=== PATIENT | female | born 1960 | race African-American/Black ===

== ENCOUNTER 2016-08-29 20:59 | Emergency (ER) | payer MEDICAID ==
[~2016-08-29] VITALS: Ht 154.9 cm; Wt 98.0 kg
[~2016-08-29 20:59] MED LIST: ACET-1757 PO; AMLO10TA2 PO; ASPI-621 PO; ASPI325T4 PO; ATOR10TA PO; ATOR80TA75 PO; BISA10SU65 PR; BUPR75TA5 PO; CARV6.252 PO; CITA20TA9 PO; CYCL-259 PO; DOCU240C53 PO; ENOX40SY4 SQ; ESOM20CA PO; FURO-93 PO; GABA300C10 PO; HEPA5000 SQ; HYDR-3342 PO; INSU100C SQ; INSU100I28 SC; INSU100I28 SQ-INSULIN; INSU100V5 SQ-INSULIN; INSU100V8 SQ; LOSA25TA2 PO; LOSA50TA2 PO; MICO45CR VG; NICO1PAT4 TD; OXYC1TAB9 PO; RANI-276 PO; RANI150T4 PO; TRAM50TA2 PO
[2016-08-29] MEDS ORDERED: ONDANSETRON 2MG/ML, 2ML IVPush ONE (22:00)
[2016-08-29] MEDS ORDERED: ONDANSETRON 2MG/ML, 2ML ONE (22:10)
[2016-08-29] MEDS ORDERED: MORPHINE SULFATE 4 MG/ML, 1ML ONE ×2 (22:10→23:46)
[2016-08-29] MEDS: MORPHINE SULFATE 4 MG/ML, 1ML IVPush PRN ×2 (22:14→23:49)
[2016-08-29 23:52] VITALS: BP 154/85
== END 2016-08-30 02:15 | disposition home or self-care (01) ==
LOC: ED 08-30 00:53
DX: S42.291A Other displaced fracture of upper end of right humerus, initial encounter for closed fracture (principal); G43.909 Migraine, unspecified, not intractable, without status migrainosus; E78.5 Hyperlipidemia, unspecified; J45.909 Unspecified asthma, uncomplicated; E78.00 Pure hypercholesterolemia, unspecified; I10 Essential (primary) hypertension; J44.9 Chronic obstructive pulmonary disease, unspecified; E11.9 Type 2 diabetes mellitus without complications; Z87.891 Personal history of nicotine dependence; W07.XXXA Fall from chair, initial encounter; Y93.89 Activity, other specified; Y92.89 Other specified places as the place of occurrence of the external cause; Y99.8 Other external cause status
CPT/HCPCS: 73030; 73200; 96374; 96375; 96376; 99284; J2405

== ENCOUNTER 2018-07-09 17:12 | Emergency (ER) | payer MEDICAID ==
[~2018-07-09] VITALS: Ht 154.9 cm; Wt 114.0 kg
[~2018-07-09 17:12] MED LIST changes: -AMLO10TA2 PO; +AMLO10TA8 PO; -ASPI-621 PO; +ASPI325T17 PO; -ASPI325T4 PO; +ASPI81TA45 PO; +ATOR-2 PO; -ATOR80TA75 PO; -HEPA5000 SQ; +HEPA50002 SQ; +NICO-486 TD; -NICO1PAT4 TD; +OXYC-432 PO; -OXYC1TAB9 PO; -RANI-276 PO; +RANI-448 PO
--- NOTE | 2018-07-09 17:19 | NUR ---
PT BIB [facility] FOR RLQ PAIN FOR 6 DAYS. PAIN IS A 7/10 ON THE PAIN SCALE. DENIES N/V/D. REPORTS THAT PAIN GOES DOWN HER BUTT WHEN SHE WALKS. BP 117/56, FS 133. PT TOOK 10 MG PERCOSET PRIOR TO ARRIVAL. PT IS ALERT, ORIENTED, WITH NAD. PT IS CONNECTED TO THE MONITOR. CALL LIGHT WITHIN REACH.
--- NOTE | 2018-07-09 17:26 | NUR ---
PA AT BEDSIDE.
[2018-07-09] MEDS ORDERED: KETOROLAC 30 MG/1 ML ONE (17:46)
[2018-07-09 17:55] VITALS: BP 129/69
[2018-07-09 17:59] LABS: BASOPHILS # (AUTO) 0.07 x10^3/uL (0-0.1); BASOPHILS % (AUTO) 1 % (0-1); EOSINOPHILS # (AUTO) 0.13 x10^3/uL (0-0.4); EOSINOPHILS % (AUTO) 2 % (1-7); LYMPHOCYTES % (AUTO) 44 % (22-44); MD NO; MEAN CORPUSCULAR HGB CONC 32.9 g/dL (32.4-35.8); MEAN CORPUSCULAR VOLUME 85.2 fL (80-100); MEAN PLATELET VOLUME 9.5 fL (7.4-10.4); MONOCYTES % (AUTO) 6 % (2-9); NEUTROPHILS # (AUTO) 3.03 x10^3/uL (1.8-6.8); NEUTROPHILS % (AUTO) 47 % (42-75); PLATELET COUNT 244 x10^3/uL (130-400); RED BLOOD COUNT 4.02 x10^6/uL (3.82-5.3); RED CELL DISTRIBUTION WIDTH 14.8 % (9.6-15.2)
[2018-07-09] MEDS ORDERED: KETOROLAC 30 MG/1 ML IM ONE (18:00)
[2018-07-09 18:07] LABS: ALANINE AMINOTRANSFERASE 19 U/L (12-78); ALBUMIN 3.1 g/dL (3.4-5.0); ANION GAP 6 mmol/L (5-15); CALCIUM 8.2 mg/dL (8.5-10.1); CHLORIDE 115 mmol/L (98-107); CREATININE 1.07 mg/dL (0.55-1.02)
[2018-07-09 18:09] LABS: ALKALINE PHOSPHATASE 138 U/L (45-117); BILIRUBIN,TOTAL 0.4 mg/dL (0.2-1.0); TOTAL PROTEIN 7.3 g/dL (6.4-8.2)
--- NOTE | 2018-07-09 18:12 | NUR ---
PT IS RESTING IN BED WATCHING TV, RESPIRATIONS EQUAL AND NON LABORED. NAD. PT IS CONNECTED TO THE MONITOR. CALL LIGHT WITHIN REACH.
[2018-07-09 18:33] LABS: CULTURE INDICATED? YES; MICROSCOPIC INDICATED
[2018-07-09] MEDS ORDERED: OMNIPAQUE 350 MG/ML, 100ML BOTTLE ONE (19:00)
--- NOTE | 2018-07-09 19:03 | NUR ---
Report given to Phan MOY.
--- NOTE | 2018-07-09 19:51 | NUR ---
PT TO BR AND BACK VIA WC AND AWAITING CT SCAN
--- NOTE | 2018-07-09 20:25 | NUR ---
PT WITH IV PLACED AND TO CT SCAN ORDERED.
--- NOTE | 2018-07-09 20:41 | NUR ---
PT BACK FROM CT SCAN PLACED ON MONITOR AND AWAITING CT RESULTS.
[2018-07-09] MEDS ORDERED: CEFDINIR 300 MG CAPSULE PO ONE (21:00)
[2018-07-09] MEDS ORDERED: CEFDINIR 300 MG CAPSULE ONE (21:14)
--- NOTE | 2018-07-09 21:17 | NUR ---
PT GIVEN SANDWICH AND TRANSPORT TO FACILITY VIA [facility] IS BEING ARRANGED
--- NOTE | 2018-07-09 21:32 | NUR ---
REPORT CALLED TO RN AT [facility]
--- NOTE | 2018-07-09 22:09 | NUR ---
SPOKE WITH TENZIN AT [facility]
--- NOTE | 2018-07-09 22:18 | NUR ---
[facility] DUE FOR TRANSPORT AT [id number]
== END 2018-07-09 23:17 | disposition home or self-care (01) ==
LOC: ED 18:41
DX: N30.00 Acute cystitis without hematuria (principal); B37.9 Candidiasis, unspecified; I25.10 Atherosclerotic heart disease of native coronary artery without angina pectoris; I10 Essential (primary) hypertension; E11.9 Type 2 diabetes mellitus without complications; J45.909 Unspecified asthma, uncomplicated
CPT/HCPCS: 36415; 74177; 80053; 81001; 83690; 85025; 87086; 96372; 99284; J1885; Q9967

== ENCOUNTER 2018-09-10 23:31 | Inpatient (IN) | payer MEDICAID ==
[~2018-09-10] VITALS: Ht 157.5 cm; Wt 106.4 kg
--- NOTE | 2018-09-10 23:57 | NUR ---
PT BIB EMS FROM [facility]. PT WAS FOUND TO BE ALTERED. EMS REPORTS THAT PT USUALLY IS UP AND WALKING. PT HAS BEEN ON FLAGYL TID 500 MG FOR CHOLESTASIS. PT WAS BROUGHT IN WITH A CATHETER IN PLACE. PT IS ABLE TO FOLLOW COMANDS BUT IS NOT ABLE TO ANSWER ALL A&O QUESTIONS. PT KNOWS SELF. VS STABLE AT THIS TIME. DR OSMAN HAS SEEN PATIENT. LAB IN ROOM. MILL CONTROLLER ON. NSR NOTED. WILL CONTINUE TO MONITOR.
[2018-09-11] MEDS ORDERED: CEFT1VIA13 IM (00:03)
[2018-09-11 00:04] LABS: ALANINE AMINOTRANSFERASE 16 U/L (12-78); ALBUMIN 1.9 g/dL (3.4-5.0); ANION GAP 7 mmol/L (5-15); CALCIUM 8.3 mg/dL (8.5-10.1); CHLORIDE 121 mmol/L (98-107); CREATININE 3.35 mg/dL (0.55-1.02)
[2018-09-11] MEDS ORDERED: CITA10TA8 PO (00:04)
[2018-09-11 00:05] LABS: PROTHROMBIN TIME 10.5 Seconds (9.6-11.5)
[2018-09-11 00:06] LABS: BILIRUBIN,TOTAL 0.4 mg/dL (0.2-1.0)
[2018-09-11] MEDS ORDERED: METR500T PO ×2 (00:06)
[2018-09-11 00:07] LABS: TOTAL PROTEIN 6.4 g/dL (6.4-8.2)
[2018-09-11] MEDS ORDERED: LOSA50TA14 PO (00:07)
[2018-09-11] MEDS ORDERED: LORA0.5T PO (00:07)
[2018-09-11] MEDS ORDERED: OXYB5TAB7 PO (00:08)
[2018-09-11 00:09] LABS: ALKALINE PHOSPHATASE 160 U/L (45-117)
[2018-09-11] MEDS ORDERED: HYDR-3343 PO (00:10)
[2018-09-11] MEDS ORDERED: GABA300C10 PO (00:11)
[2018-09-11] MEDS ORDERED: DIVA125T2 PO (00:13)
[2018-09-11] MEDS ORDERED: INSU100I13 SQ (00:15)
[2018-09-11 00:18] LABS: TROPONIN I 0.138 ng/mL (0.000-0.045)
--- NOTE | 2018-09-11 00:29 | NUR ---
PT IS ABLE TO ANSWER WHO SHE IS AND DATE OF . VS STABLE. WIND TURBINE DESIGN ENGINEER ON. NSR NOTED. CALL LIGHT IN PLACE. WILL CONTINUE TO MONITOR.
--- NOTE | 2018-09-11 00:38 | NUR ---
TASK RN: DELANEY GARCIA (AUNT) [phone]
[2018-09-11 00:42] LABS: CULTURE INDICATED? YES; MICROSCOPIC INDICATED
[2018-09-11] MEDS ORDERED: CEFTRIAXONE PMX 1GM/50ML 50 ML ONE (00:57)
--- NOTE | 2018-09-11 00:58 | NUR ---
LAB IN ROOM FOR REDRAW BOTH BLOOD CULTURES DRAWN BEFORE ABX GIVEN
[2018-09-11] MEDS ORDERED: PIPERACILLIN/TAZO/PMX 3.375GM 50 ML IVPB ONE (01:00)
[2018-09-11] MEDS ORDERED: SODIUM CHLORIDE 0.9% 1,000ML IVBOLUS ONE ×2 (01:00)
[2018-09-11] MEDS: ASPIRIN 300 MG SUPP PR ONE ×2 (01:00→01:03)
[2018-09-11] MEDS ORDERED: VANCOMYCIN 1,500 MG in SODIUM CHLORIDE 0.9% 250 ML IV ONE (01:00)
[2018-09-11] MEDS ORDERED: VANCOMYCIN PER PHARMACY IV ONE (01:00)
[2018-09-11] MEDS ORDERED: CEFTRIAXONE PMX 1GM/50ML 50 ML IVPB ONE (01:00)
--- NOTE | 2018-09-11 01:07 | NUR ---
PT SCREAMING AND YELLING. PT REFUSED RECTAL [facility]. DR RUELAS IN ROOM. OKAYED TO HOLD ASPIRIN AT THIS TIME.
[2018-09-11] MEDS ORDERED: PIPERACILLIN/TAZO/PMX 3.375GM 50 ML ONE ×2 (01:12→01:13)
[2018-09-11] MEDS ORDERED: ZIPRASIDONE 20 MG INJ IM ONE ×3 (01:20→22:00)
[2018-09-11] MEDS ORDERED: SODIUM CHLORIDE 0.9% 1,000 ML IV SCH (01:23)
[2018-09-11] MEDS ORDERED: VANCOMYCIN PER PHARMACY MC PRN (01:30)
--- NOTE | 2018-09-11 01:30 | NUR ---
PT YELLING AND MOVING AROUND BED. DR RUELAS IN ROOM. ORDERED SARWAT. MEDICATION GIVEN. WILL CONTINUE TO MONITOR.
--- NOTE | 2018-09-11 01:56 | NUR ---
BREAK RN: PT BLOOD CULTURES ARE DRAWN AND PT IS BANDED. ORDERED ABX STARTED. PT CALMING DOWN AFTER MEDS. ORDERED FLUIDS INFUSING. BILAT BEDRAILS UP. WILL CONTINUE TO MONITOR.
[2018-09-11 02:01] LABS: MEAN CORPUSCULAR HEMOGLOBIN 28.4 pg (27.0-34.8); MEAN CORPUSCULAR HGB CONC 31.9 g/dL (32.4-35.8); MEAN CORPUSCULAR VOLUME 88.8 fL (80-100); MEAN PLATELET VOLUME 10.2 fL (7.4-10.4); PLATELET COUNT 303 x10^3/uL (130-400)
[2018-09-11 02:16] LABS: BASOPHILS # (AUTO) 0.06 x10^3/uL (0-0.1); BASOPHILS % (AUTO) 0 % (0-1); EOSINOPHILS # (AUTO) 0.16 x10^3/uL (0-0.4); EOSINOPHILS % (AUTO) 1 % (1-7); LYMPHOCYTES # (AUTO) 3.67 x10^3/uL (1-3.4); LYMPHOCYTES % (AUTO) 20 % (22-44); MD SCAN; MONOCYTES # (AUTO) 1.43 x10^3/uL (0.2-0.8); MONOCYTES % (AUTO) 8 % (2-9); NEUTROPHILS # (AUTO) 13.35 x10^3/uL (1.8-6.8); NEUTROPHILS % (AUTO) 72 % (42-75)
[2018-09-11 02:59] LABS: AMPHETAMINE SCREEN, URINE Negative (Negative); BARBITURATE SCREEN, URINE Negative (Negative); BENZODIAZEPINE SCREEN, URINE Negative (Negative); CANNABINOID SCREEN, URINE Negative (Negative); COCAINE SCREEN, URINE Negative (Negative); METHADONE SCREEN, URINE Negative (Negative); OPIATE SCREEN, URINE Positive (Negative)
--- NOTE | 2018-09-11 02:59 | NUR ---
PT PUT ON WAFFLE MATTRESS. PT BACK FROM CT. VS STABLE. GRAIN ELEVATOR OPERATOR ON. NSR NOTED. CALL LIGHT IN PLACE. WILL CONTINUE TO MONITOR.
[2018-09-11] MEDS ORDERED: INSULIN GLARGINE 100 UNITS/ML, PEN SQ-INSULIN SCH (03:00)
[2018-09-11] MEDS ORDERED: CYCLOBENZAPRINE 10 MG TABLET PO PRN (03:00)
--- NOTE | 2018-09-11 03:32 | NUR ---
SPOKE WITH DR RUELAS. DOES NOT WANT ARMEN BLANDON'D AND NEW ONE PLACED AT THIS TIME. PT RESTING IN ROOM. REGULAR RESP. VS STABLE SENIOR GRANTS OFFICER ON. WILL CONTINUE TO MONIOTR.
--- NOTE | 2018-09-11 04:45 | NUR ---
received report from Jessica. pt resting in bed. pt awaken at times to yell then goes back to dozing with eyes open. pt vss. pt on waffle mattress. will continue to monitor. ordered fluids infusing.
--- NOTE | 2018-09-11 05:32 | NUR ---
PT RESTING CALMLY IN BED AT THIS TIME. PT VSS. LAB IN TO DRAW LABS AGAIN. PT TOLERATING WELL. PT MAKING STRANGE STATEMENTS. STATED THIS RN NEEDS TO "PUT SOME BEANS ON TO BOIL". BILAT BEDRAILS UP. NO STATED NEEDS BY PT. LAB CONTINUING TO ATTEMPT BLOOD DRAW.
[2018-09-11 06:16] LABS: ANION GAP 10 mmol/L (5-15); CALCIUM 7.5 mg/dL (8.5-10.1); CHLORIDE 121 mmol/L (98-107)
[2018-09-11 06:18] LABS: TROPONIN I 0.072 ng/mL (0.000-0.045)
[2018-09-11 06:31] LABS: HEMOGLOBIN A1C 5.5 % (4.2-6.3)
--- NOTE | 2018-09-11 07:07 | NUR ---
REPORT TO KRISTEL MOY FOR ROOM 542
[2018-09-11] MEDS ORDERED: PHARMACOKINETIC CONSULTATION MC ONE (07:30)
[2018-09-11] MEDS ORDERED: PHARMACOKINETIC MONITORING MC PRN (07:30)
--- NOTE | 2018-09-11 07:40 | NUR ---
LATE ENTRY FOR 0720 PT TRANSPORTED TO FLOOR. PT LEFT WITH ALL PERSONAL BELONGINGS, INCLUDING PILLOW AND BLANKET.
[2018-09-11] MEDS: SODIUM CHLORIDE 0.45% 1,000 ML IV SCH ×2 (08:12→18:00)
[2018-09-11] MEDS: GABAPENTIN 100 MG CAPSULE PO SCH ×4 (08:58→21:38)
[2018-09-11] MEDS: INSULIN LISPRO 100 UNITS/ML, PEN SQ-INSULIN SCH ×4 (08:58→21:00)
[2018-09-11] MEDS: ASPIRIN 81 MG TABLET EC PO SCH (08:58)
[2018-09-11] MEDS: CITALOPRAM 10 MG TABLET PO SCH (08:59)
[2018-09-11] MEDS: CARVEDILOL 6.25 MG TABLET PO SCH ×3 (08:59→21:38)
[2018-09-11] MEDS: LORazepam 0.5MG TABLET PO SCH (08:59)
[2018-09-11] MEDS: DIVALPROEX 125 MG TABLET.DR PO SCH ×3 (09:00→21:38)
[2018-09-11 11:57] VITALS: BP 111/63
[2018-09-11] MEDS: METRONIDAZOLE PMX 500MG/100ML 100 ML IV SCH ×2 (12:46→20:03)
[2018-09-11] MEDS: INSULIN GLARGINE 100 UNITS/ML, PEN SQ-INSULIN SCH (15:43)
[2018-09-11 17:19] LABS: CLOSTRIDIUM DIFFICILE ANTIGEN POSITIVE; CLOSTRIDIUM DIFFICILE TOXIN NEGATIVE (Negative)
[2018-09-11] MEDS: ATORVASTATIN 80 MG TABLET PO SCH ×2 (21:00→21:37)
[2018-09-11] MEDS: OXYBUTYNIN CHLORIDE 5 MG TABLET PO SCH ×2 (21:00→21:38)
[2018-09-12 00:37] VITALS: BP 134/82
[2018-09-12] MEDS: SODIUM CHLORIDE 0.45% 1,000 ML IV SCH ×3 (02:28→20:05)
[2018-09-12] MEDS: METRONIDAZOLE PMX 500MG/100ML 100 ML IV SCH (04:11)
[2018-09-12] MEDS: INSULIN GLARGINE 100 UNITS/ML, PEN SQ-INSULIN SCH ×2 (05:20→17:34)
[2018-09-12] MEDS: ASPIRIN 81 MG TABLET EC PO SCH (05:47)
[2018-09-12] MEDS: INSULIN LISPRO 100 UNITS/ML, PEN SQ-INSULIN SCH ×4 (07:00→21:00)
[2018-09-12] MEDS: CITALOPRAM 10 MG TABLET PO SCH (10:02)
[2018-09-12] MEDS: VANCOMYCIN 50 MG/ML ORAL SUSP PO SCH ×3 (10:02→23:16)
[2018-09-12] MEDS: CEFTRIAXONE PMX 1GM/50ML 50 ML IV SCH (10:02)
[2018-09-12] MEDS: LORazepam 0.5MG TABLET PO SCH (10:03)
[2018-09-12] MEDS: DIVALPROEX 125 MG TABLET.DR PO SCH ×2 (10:03→21:17)
[2018-09-12] MEDS: CARVEDILOL 6.25 MG TABLET PO SCH ×2 (10:03→21:18)
[2018-09-12] MEDS: GABAPENTIN 100 MG CAPSULE PO SCH ×3 (10:03→21:17)
[2018-09-12 12:11] VITALS: BP 135/79
[2018-09-12 20:01] VITALS: BP 135/82
[2018-09-12] MEDS: OXYBUTYNIN CHLORIDE 5 MG TABLET PO SCH (21:17)
[2018-09-12] MEDS: ATORVASTATIN 80 MG TABLET PO SCH (21:18)
[2018-09-13 02:14] VITALS: BP 125/73
[2018-09-13 02:56] VITALS: BP 139/79
[2018-09-13 05:00] LABS: ANION GAP 9 mmol/L (5-15); CALCIUM 8.4 mg/dL (8.5-10.1); CHLORIDE 121 mmol/L (98-107)
[2018-09-13] MEDS: INSULIN GLARGINE 100 UNITS/ML, PEN SQ-INSULIN SCH ×2 (05:00→17:20)
[2018-09-13 05:05] LABS: CREATININE 0.82 mg/dL (0.55-1.02); VANCOMYCIN,RANDOM 4.7 mcg/mL
[2018-09-13] MEDS: ASPIRIN 81 MG TABLET EC PO SCH (05:07)
[2018-09-13] MEDS: SODIUM CHLORIDE 0.45% 1,000 ML IV SCH ×2 (05:07→12:37)
[2018-09-13 06:49] VITALS: BP 151/77
[2018-09-13] MEDS: INSULIN LISPRO 100 UNITS/ML, PEN SQ-INSULIN SCH ×4 (07:00→20:14)
[2018-09-13] MEDS: CEFTRIAXONE PMX 1GM/50ML 50 ML IV SCH (08:00)
[2018-09-13 08:16] LABS: MEAN CORPUSCULAR HEMOGLOBIN 26.1 pg (27.0-34.8); MEAN CORPUSCULAR VOLUME 87.2 fL (80-100); MEAN PLATELET VOLUME 9.2 fL (7.4-10.4); PLATELET COUNT 311 x10^3/uL (130-400); RED BLOOD COUNT 2.87 x10^6/uL (3.82-5.3); RED CELL DISTRIBUTION WIDTH 16.4 % (9.6-15.2)
[2018-09-13] MEDS ORDERED: VANCOMYCIN 2,000 MG in SODIUM CHLORIDE 0.9% 500 ML IV SCH (08:30)
[2018-09-13] MEDS: LORazepam 0.5MG TABLET PO SCH (08:51)
[2018-09-13] MEDS: DIVALPROEX 125 MG TABLET.DR PO SCH ×2 (08:51→20:11)
[2018-09-13] MEDS: CARVEDILOL 6.25 MG TABLET PO SCH ×2 (08:52→20:12)
[2018-09-13] MEDS: GABAPENTIN 100 MG CAPSULE PO SCH ×3 (08:52→20:11)
[2018-09-13] MEDS: CITALOPRAM 10 MG TABLET PO SCH (08:53)
[2018-09-13 08:55] LABS: MD YES
[2018-09-13 08:58] LABS: BAND#(MANUAL) 0.68 x10^3/uL; BANDS%(MANUAL) 5 % (0-7); BASOS#(MANUAL) 0.14 x10^3/uL (0-0.1); BASOS% (MANUAL) 1 % (0-1); EOS#(MANUAL) 0.27 x10^3/uL (0.0-0.4); EOS% (MANUAL) 2 % (1-7); METAMYELOCYTES# (MANUAL) 0.27 x10^3/uL (0-0); METAMYELOCYTES% (MANUAL) 2 % (0-1); MONOS#(MANUAL) 1.09 x10^3/uL (0.3-2.7); MONOS% (MANUAL) 8 % (2-9); MYELOCYTES# (MANUAL) 0.14 x10^3/uL (0-0); MYELOCYTES% (MANUAL) 1 % (0-0); NRBC % (MANUAL) 2 % (0-1)
[2018-09-13 08:59] LABS: ANISOCYTOSIS 1+; HYPOCHROMIA 1+; LYMPH#(MANUAL) 2.45 x10^3/uL (1-3.4); LYMPHS% (MANUAL) 18 % (22-44); SEG#(MANUAL) 8.57 x10^3/uL (1.8-6.8); SEGS% (MANUAL) 63 % (42-75)
[2018-09-13 09:00] LABS: ACANTHOCYTES 1+; ECHINOCYTES 1+; TARGET CELLS 1+
[2018-09-13] MEDS: VANCOMYCIN 50 MG/ML ORAL SUSP PO SCH ×3 (09:00→20:11)
[2018-09-13 09:01] LABS: <PLATELET ESTIMATE> ADEQUATE; LARGE PLATELETS 1+
--- NOTE | 2018-09-13 09:46 | NUR ---
Recommend CHOPPED solids and THIN liquid diet with adherence to the following: Straws okay Alternate liquids and solids HOB 90* for PO Assistance with meal tray setup Hughes swallow precautions sign posted in patient's room Addendum: 09/13/18 at 0954 by Damaris GRANT Amended: Links added.
[2018-09-13] MEDS: MEROPENEM 1 GM in SODIUM CHLORIDE 0.9% 100 ML IV SCH ×2 (12:37→19:33)
[2018-09-13] MEDS: LACTOBACILLUS CHEW TABLET PO SCH ×2 (17:20→20:12)
[2018-09-13] MEDS: ENOXAPARIN 40 MG/0.4 ML SQ SCH (17:21)
[2018-09-13 19:45] VITALS: BP 141/85
[2018-09-13] MEDS: ATORVASTATIN 80 MG TABLET PO SCH (20:11)
[2018-09-13] MEDS: OXYBUTYNIN CHLORIDE 5 MG TABLET PO SCH (20:12)
[2018-09-14 00:21] VITALS: BP 145/87
[2018-09-14] MEDS ORDERED: ONDANSETRON 2MG/ML, 2ML IVPush ONE (01:30)
[2018-09-14] MEDS: MEROPENEM 1 GM in SODIUM CHLORIDE 0.9% 100 ML IV SCH ×3 (03:32→20:34)
[2018-09-14] MEDS: VANCOMYCIN 50 MG/ML ORAL SUSP PO SCH ×4 (03:32→20:36)
[2018-09-14 04:58] LABS: MEAN CORPUSCULAR HEMOGLOBIN 27.9 pg (27.0-34.8); MEAN CORPUSCULAR VOLUME 87.3 fL (80-100); MEAN PLATELET VOLUME 9.9 fL (7.4-10.4); PLATELET COUNT 298 x10^3/uL (130-400); RED BLOOD COUNT 2.88 x10^6/uL (3.82-5.3); RED CELL DISTRIBUTION WIDTH 16.4 % (9.6-15.2)
[2018-09-14 05:08] LABS: ALANINE AMINOTRANSFERASE 24 U/L (12-78); ALBUMIN 2.2 g/dL (3.4-5.0); ANION GAP 11 mmol/L (5-15); CALCIUM 8.2 mg/dL (8.5-10.1); CHLORIDE 116 mmol/L (98-107)
[2018-09-14 05:11] LABS: ALKALINE PHOSPHATASE 110 U/L (45-117); BILIRUBIN,TOTAL 1.1 mg/dL (0.2-1.0); CREATININE 0.73 mg/dL (0.55-1.02); TOTAL PROTEIN 5.8 g/dL (6.4-8.2)
[2018-09-14 05:38] LABS: MD YES
[2018-09-14 05:41] LABS: ANISOCYTOSIS 1+; BANDS%(MANUAL) 7 % (0-7); BASOS#(MANUAL) 0.26 x10^3/uL (0-0.1); BASOS% (MANUAL) 2 % (0-1); HYPOCHROMIA 1+; LYMPH#(MANUAL) 1.42 x10^3/uL (1-3.4); LYMPHS% (MANUAL) 11 % (22-44); METAMYELOCYTES# (MANUAL) 0.65 x10^3/uL (0-0); METAMYELOCYTES% (MANUAL) 5 % (0-1); MONOS#(MANUAL) 0.52 x10^3/uL (0.3-2.7); MONOS% (MANUAL) 4 % (2-9); NRBC % (MANUAL) 2 % (0-1); REACTIVE LYMPHS # (MANUAL) 0.13 x10^3/uL (0-0); REACTIVE LYMPHS % (MANUAL) 1 % (0-0); SEG#(MANUAL) 9.03 x10^3/uL (1.8-6.8); SEGS% (MANUAL) 70 % (42-75)
[2018-09-14 05:42] LABS: <PLATELET ESTIMATE> ADEQUATE; ACANTHOCYTES 1+; ECHINOCYTES 1+; LARGE PLATELETS 1+; TARGET CELLS 1+
[2018-09-14] MEDS: ASPIRIN 81 MG TABLET EC PO SCH (05:49)
[2018-09-14] MEDS: LACTOBACILLUS CHEW TABLET PO SCH ×4 (05:49→20:35)
[2018-09-14 06:42] VITALS: BP 162/65
[2018-09-14] MEDS: INSULIN LISPRO 100 UNITS/ML, PEN SQ-INSULIN SCH ×4 (07:00→20:34)
[2018-09-14] MEDS: INSULIN GLARGINE 100 UNITS/ML, PEN SQ-INSULIN SCH ×2 (08:12→20:33)
[2018-09-14] MEDS: DIVALPROEX 125 MG TABLET.DR PO SCH ×2 (09:51→20:35)
[2018-09-14] MEDS: GABAPENTIN 100 MG CAPSULE PO SCH ×3 (09:51→20:35)
[2018-09-14] MEDS: CITALOPRAM 10 MG TABLET PO SCH (09:51)
[2018-09-14] MEDS: CARVEDILOL 6.25 MG TABLET PO SCH ×2 (09:52→20:35)
[2018-09-14] MEDS: LORazepam 0.5MG TABLET PO SCH (09:52)
[2018-09-14 13:00] VITALS: BP 122/62
[2018-09-14] MEDS: ENOXAPARIN 40 MG/0.4 ML SQ SCH (17:39)
[2018-09-14 20:12] VITALS: BP 126/68
[2018-09-14] MEDS: ATORVASTATIN 80 MG TABLET PO SCH (20:35)
[2018-09-14] MEDS: OXYBUTYNIN CHLORIDE 5 MG TABLET PO SCH (20:35)
[2018-09-15 00:44] VITALS: BP 154/82
[2018-09-15] MEDS: VANCOMYCIN 50 MG/ML ORAL SUSP PO SCH ×4 (02:53→22:56)
[2018-09-15] MEDS: MEROPENEM 1 GM in SODIUM CHLORIDE 0.9% 100 ML IV SCH ×3 (02:53→19:56)
[2018-09-15] MEDS ORDERED: MAGNESIUM SULFATE PMX 2GM/50ML 50 ML IV ONE (06:00)
[2018-09-15] MEDS: ASPIRIN 81 MG TABLET EC PO SCH (06:31)
[2018-09-15] MEDS: LACTOBACILLUS CHEW TABLET PO SCH ×4 (06:31→20:47)
[2018-09-15 06:48] LABS: MEAN CORPUSCULAR HGB CONC 31.9 g/dL (32.4-35.8); MEAN CORPUSCULAR VOLUME 87.7 fL (80-100); MEAN PLATELET VOLUME 9.2 fL (7.4-10.4); PLATELET COUNT 263 x10^3/uL (130-400); RED BLOOD COUNT 2.84 x10^6/uL (3.82-5.3); RED CELL DISTRIBUTION WIDTH 16.6 % (9.6-15.2)
[2018-09-15 06:50] LABS: ALANINE AMINOTRANSFERASE 25 U/L (12-78); ALBUMIN 2.2 g/dL (3.4-5.0); ANION GAP 7 mmol/L (5-15); CALCIUM 8.1 mg/dL (8.5-10.1); CHLORIDE 114 mmol/L (98-107); CREATININE 0.71 mg/dL (0.55-1.02)
[2018-09-15 06:52] LABS: ALKALINE PHOSPHATASE 114 U/L (45-117); BILIRUBIN,TOTAL 0.7 mg/dL (0.2-1.0); TOTAL PROTEIN 5.8 g/dL (6.4-8.2)
[2018-09-15] MEDS: INSULIN LISPRO 100 UNITS/ML, PEN SQ-INSULIN SCH ×4 (07:00→20:49)
[2018-09-15 07:10] LABS: MD YES
[2018-09-15 07:11] LABS: BAND#(MANUAL) 0.53 x10^3/uL; BANDS%(MANUAL) 4 % (0-7); EOS#(MANUAL) 0.27 x10^3/uL (0.0-0.4); EOS% (MANUAL) 2 % (1-7); LYMPH#(MANUAL) 4.79 x10^3/uL (1-3.4); LYMPHS% (MANUAL) 36 % (22-44); METAMYELOCYTES# (MANUAL) 0.53 x10^3/uL (0-0); METAMYELOCYTES% (MANUAL) 4 % (0-1); MONOS#(MANUAL) 0.13 x10^3/uL (0.3-2.7); MONOS% (MANUAL) 1 % (2-9); NRBC % (MANUAL) 1 % (0-1); SEG#(MANUAL) 7.05 x10^3/uL (1.8-6.8); SEGS% (MANUAL) 53 % (42-75)
[2018-09-15 07:12] LABS: <PLATELET ESTIMATE> ADEQUATE; ANISOCYTOSIS 1+; HYPOCHROMIA 1+
[2018-09-15 07:14] LABS: ACANTHOCYTES 1+
[2018-09-15 07:15] LABS: LARGE PLATELETS 1+; POLYCHROMASIA 1+
[2018-09-15 07:22] VITALS: BP 150/84
[2018-09-15] MEDS: POTASSIUM CHLORIDE 20 MEQ TAB.ER.PRT PO SCH ×3 (07:58→16:58)
[2018-09-15] MEDS: CARVEDILOL 6.25 MG TABLET PO SCH ×2 (07:58→20:48)
[2018-09-15] MEDS: CITALOPRAM 10 MG TABLET PO SCH (07:58)
[2018-09-15] MEDS: POTASSIUM ACID PHOSPHATE 500 MG TABLET.SOL PO SCH ×4 (07:58→22:56)
[2018-09-15] MEDS: LORazepam 0.5MG TABLET PO SCH (07:59)
[2018-09-15] MEDS: DIVALPROEX 125 MG TABLET.DR PO SCH ×2 (07:59→20:47)
[2018-09-15] MEDS: GABAPENTIN 100 MG CAPSULE PO SCH ×3 (07:59→20:47)
[2018-09-15] MEDS: INSULIN GLARGINE 100 UNITS/ML, PEN SQ-INSULIN SCH ×2 (08:10→20:48)
[2018-09-15] MEDS ORDERED: MAGNESIUM OXIDE 400 MG TABLET PO SCH (09:00)
[2018-09-15 12:13] VITALS: BP 143/87
[2018-09-15] MEDS: METRONIDAZOLE PMX 500MG/100ML 100 ML IV SCH (16:57)
[2018-09-15] MEDS: ENOXAPARIN 40 MG/0.4 ML SQ SCH (17:04)
[2018-09-15 19:21] VITALS: BP 125/82
[2018-09-15] MEDS: OXYBUTYNIN CHLORIDE 5 MG TABLET PO SCH (20:47)
[2018-09-15] MEDS: ATORVASTATIN 80 MG TABLET PO SCH (20:47)
[2018-09-16] MEDS: METRONIDAZOLE PMX 500MG/100ML 100 ML IV SCH ×3 (00:54→16:40)
[2018-09-16 00:58] VITALS: BP 127/66
[2018-09-16] MEDS: MEROPENEM 1 GM in SODIUM CHLORIDE 0.9% 100 ML IV SCH ×3 (03:40→20:13)
[2018-09-16] MEDS: ASPIRIN 81 MG TABLET EC PO SCH (05:08)
[2018-09-16] MEDS: LACTOBACILLUS CHEW TABLET PO SCH (05:08)
[2018-09-16] MEDS: VANCOMYCIN 50 MG/ML ORAL SUSP PO SCH ×4 (05:08→22:56)
[2018-09-16 05:34] LABS: BASOPHILS # (AUTO) 0.03 x10^3/uL (0-0.1); BASOPHILS % (AUTO) 0 % (0-1); EOSINOPHILS # (AUTO) 0.24 x10^3/uL (0-0.4); EOSINOPHILS % (AUTO) 2 % (1-7); LYMPHOCYTES # (AUTO) 3.04 x10^3/uL (1-3.4); LYMPHOCYTES % (AUTO) 26 % (22-44); MD NO; MEAN CORPUSCULAR HEMOGLOBIN 28.1 pg (27.0-34.8); MEAN CORPUSCULAR VOLUME 87.9 fL (80-100); MEAN PLATELET VOLUME 9.8 fL (7.4-10.4); MONOCYTES # (AUTO) 1.24 x10^3/uL (0.2-0.8); MONOCYTES % (AUTO) 10 % (2-9); NEUTROPHILS # (AUTO) 7.36 x10^3/uL (1.8-6.8); NEUTROPHILS % (AUTO) 62 % (42-75); PLATELET COUNT 272 x10^3/uL (130-400); RED BLOOD COUNT 3.08 x10^6/uL (3.82-5.3); RED CELL DISTRIBUTION WIDTH 16.1 % (9.6-15.2)
[2018-09-16 05:48] LABS: ANION GAP 8 mmol/L (5-15); CHLORIDE 112 mmol/L (98-107); CREATININE 0.82 mg/dL (0.55-1.02)
[2018-09-16] MEDS: INSULIN LISPRO 100 UNITS/ML, PEN SQ-INSULIN SCH ×4 (07:00→20:14)
[2018-09-16] MEDS: POTASSIUM CHLORIDE 20 MEQ TAB.ER.PRT PO SCH ×3 (08:01→16:40)
[2018-09-16] MEDS: LORazepam 0.5MG TABLET PO SCH (08:02)
[2018-09-16] MEDS: GABAPENTIN 100 MG CAPSULE PO SCH (08:02)
[2018-09-16] MEDS: NEUTRA PHOS K 250 MG TABLET PO SCH ×3 (08:02→20:14)
[2018-09-16] MEDS: CITALOPRAM 10 MG TABLET PO SCH (08:03)
[2018-09-16] MEDS: DIVALPROEX 125 MG TABLET.DR PO SCH ×2 (08:03→20:14)
[2018-09-16] MEDS: INSULIN GLARGINE 100 UNITS/ML, PEN SQ-INSULIN SCH ×2 (08:04→20:14)
[2018-09-16 08:15] VITALS: BP 127/88
[2018-09-16] MEDS: CARVEDILOL 6.25 MG TABLET PO SCH ×2 (10:29→20:15)
[2018-09-16 13:53] VITALS: BP 83/56
[2018-09-16 14:30] VITALS: BP 101/67
[2018-09-16] MEDS: SODIUM CHLORIDE 0.45% 1,000 ML IV SCH (16:00)
[2018-09-16] MEDS: GABAPENTIN 400 MG CAPSULE PO SCH ×2 (16:40→20:14)
[2018-09-16] MEDS: ENOXAPARIN 40 MG/0.4 ML SQ SCH (16:51)
[2018-09-16 18:37] VITALS: BP 126/84
[2018-09-16] MEDS: ATORVASTATIN 80 MG TABLET PO SCH (20:15)
[2018-09-16] MEDS: OXYBUTYNIN CHLORIDE 5 MG TABLET PO SCH (20:15)
[2018-09-16] MEDS ORDERED: MELA1TAB35 PO (22:08)
[2018-09-16] MEDS ORDERED: AMLO5TAB4 PO (22:08)
[2018-09-17 00:36] VITALS: BP 131/65
[2018-09-17] MEDS: METRONIDAZOLE PMX 500MG/100ML 100 ML IV SCH ×3 (01:16→16:59)
[2018-09-17] MEDS: MEROPENEM 1 GM in SODIUM CHLORIDE 0.9% 100 ML IV SCH ×3 (03:29→20:03)
[2018-09-17] MEDS: VANCOMYCIN 50 MG/ML ORAL SUSP PO SCH ×4 (05:30→23:16)
[2018-09-17] MEDS: SODIUM CHLORIDE 0.45% 1,000 ML IV SCH ×2 (05:31→16:59)
[2018-09-17] MEDS: ASPIRIN 81 MG TABLET EC PO SCH (05:31)
[2018-09-17] MEDS: INSULIN LISPRO 100 UNITS/ML, PEN SQ-INSULIN SCH ×4 (07:00→20:06)
[2018-09-17] MEDS: CARVEDILOL 6.25 MG TABLET PO SCH ×2 (07:51→20:04)
[2018-09-17] MEDS: DIVALPROEX 125 MG TABLET.DR PO SCH ×2 (07:51→20:04)
[2018-09-17] MEDS: POTASSIUM CHLORIDE 20 MEQ TAB.ER.PRT PO SCH ×2 (07:51→15:40)
[2018-09-17] MEDS: INSULIN GLARGINE 100 UNITS/ML, PEN SQ-INSULIN SCH ×2 (07:51→20:06)
[2018-09-17] MEDS: LORazepam 0.5MG TABLET PO SCH (07:51)
[2018-09-17] MEDS: GABAPENTIN 400 MG CAPSULE PO SCH (07:52)
[2018-09-17] MEDS: CITALOPRAM 10 MG TABLET PO SCH (07:52)
[2018-09-17] MEDS: NEUTRA PHOS K 250 MG TABLET PO SCH ×3 (07:52→20:04)
[2018-09-17 09:42] LABS: BASOPHILS # (AUTO) 0.04 x10^3/uL (0-0.1); BASOPHILS % (AUTO) 1 % (0-1); EOSINOPHILS # (AUTO) 0.14 x10^3/uL (0-0.4); EOSINOPHILS % (AUTO) 2 % (1-7); LYMPHOCYTES % (AUTO) 34 % (22-44); MD NO; MEAN CORPUSCULAR HEMOGLOBIN 28.1 pg (27.0-34.8); MEAN CORPUSCULAR HGB CONC 31.7 g/dL (32.4-35.8); MEAN CORPUSCULAR VOLUME 88.8 fL (80-100); MEAN PLATELET VOLUME 9.5 fL (7.4-10.4); MONOCYTES % (AUTO) 11 % (2-9); NEUTROPHILS # (AUTO) 4.86 x10^3/uL (1.8-6.8); NEUTROPHILS % (AUTO) 53 % (42-75); PLATELET COUNT 247 x10^3/uL (130-400); RED BLOOD COUNT 2.94 x10^6/uL (3.82-5.3); RED CELL DISTRIBUTION WIDTH 16.9 % (9.6-15.2)
[2018-09-17 11:29] LABS: CHLORIDE 112 mmol/L (98-107)
[2018-09-17 12:18] LABS: ALANINE AMINOTRANSFERASE 27 U/L (12-78); ALBUMIN 2.3 g/dL (3.4-5.0); ALKALINE PHOSPHATASE 105 U/L (45-117); ANION GAP 8 mmol/L (5-15); BILIRUBIN,TOTAL 0.4 mg/dL (0.2-1.0); CALCIUM 7.6 mg/dL (8.5-10.1); TOTAL PROTEIN 5.7 g/dL (6.4-8.2)
[2018-09-17 13:16] VITALS: BP 126/76
[2018-09-17] MEDS ORDERED: GABAPENTIN 300 MG CAPSULE ONE ×2 (15:35→19:51)
[2018-09-17] MEDS: ENOXAPARIN 40 MG/0.4 ML SQ SCH (15:39)
[2018-09-17] MEDS ORDERED: GABAPENTIN 400 MG CAPSULE PO SCH (16:00)
[2018-09-17 19:34] VITALS: BP 97/60
[2018-09-17] MEDS: ATORVASTATIN 80 MG TABLET PO SCH (20:04)
[2018-09-17] MEDS: GABAPENTIN 300 MG CAPSULE PO SCH (20:04)
[2018-09-17] MEDS: OXYBUTYNIN CHLORIDE 5 MG TABLET PO SCH (20:04)
[2018-09-18] MEDS: METRONIDAZOLE PMX 500MG/100ML 100 ML IV SCH ×2 (00:50→08:29)
[2018-09-18 01:05] VITALS: BP 98/58
[2018-09-18] MEDS: MEROPENEM 1 GM in SODIUM CHLORIDE 0.9% 100 ML IV SCH ×3 (04:37→20:22)
[2018-09-18 06:01] LABS: BASOPHILS # (AUTO) 0.03 x10^3/uL (0-0.1); BASOPHILS % (AUTO) 0 % (0-1); EOSINOPHILS # (AUTO) 0.13 x10^3/uL (0-0.4); EOSINOPHILS % (AUTO) 2 % (1-7); LYMPHOCYTES # (AUTO) 3.44 x10^3/uL (1-3.4); LYMPHOCYTES % (AUTO) 40 % (22-44); MD NO; MEAN CORPUSCULAR HEMOGLOBIN 28.5 pg (27.0-34.8); MEAN CORPUSCULAR HGB CONC 31.7 g/dL (32.4-35.8); MEAN CORPUSCULAR VOLUME 89.7 fL (80-100); MEAN PLATELET VOLUME 10.7 fL (7.4-10.4); MONOCYTES # (AUTO) 0.85 x10^3/uL (0.2-0.8); MONOCYTES % (AUTO) 10 % (2-9); NEUTROPHILS % (AUTO) 48 % (42-75); PLATELET COUNT 223 x10^3/uL (130-400); RED BLOOD COUNT 2.72 x10^6/uL (3.82-5.3); RED CELL DISTRIBUTION WIDTH 17.6 % (9.6-15.2)
[2018-09-18 06:07] LABS: ALBUMIN 2.1 g/dL (3.4-5.0); ANION GAP 6 mmol/L (5-15); CALCIUM 7.7 mg/dL (8.5-10.1); CHLORIDE 114 mmol/L (98-107)
[2018-09-18] MEDS: VANCOMYCIN 50 MG/ML ORAL SUSP PO SCH ×3 (06:07→18:00)
[2018-09-18] MEDS: ASPIRIN 81 MG TABLET EC PO SCH (06:07)
[2018-09-18 06:10] LABS: ALANINE AMINOTRANSFERASE 42 U/L (12-78); ALKALINE PHOSPHATASE 108 U/L (45-117); BILIRUBIN,TOTAL 0.4 mg/dL (0.2-1.0); CREATININE 0.92 mg/dL (0.55-1.02); TOTAL PROTEIN 5.3 g/dL (6.4-8.2)
[2018-09-18 07:45] VITALS: BP 131/81
[2018-09-18] MEDS: NEUTRA PHOS K 250 MG TABLET PO SCH ×3 (08:30→20:21)
[2018-09-18] MEDS: INSULIN LISPRO 100 UNITS/ML, PEN SQ-INSULIN SCH ×4 (08:30→20:22)
[2018-09-18] MEDS: CITALOPRAM 10 MG TABLET PO SCH (08:31)
[2018-09-18] MEDS: LORazepam 0.5MG TABLET PO SCH (08:31)
[2018-09-18] MEDS: CARVEDILOL 6.25 MG TABLET PO SCH ×2 (08:31→20:21)
[2018-09-18] MEDS: GABAPENTIN 300 MG CAPSULE PO SCH ×3 (08:31→20:21)
[2018-09-18] MEDS: POTASSIUM CHLORIDE 20 MEQ TAB.ER.PRT PO SCH (08:31)
[2018-09-18] MEDS: DIVALPROEX 125 MG TABLET.DR PO SCH ×2 (08:31→20:21)
[2018-09-18] MEDS: SODIUM CHLORIDE 0.45% 1,000 ML IV SCH ×2 (11:50→20:22)
[2018-09-18 12:26] VITALS: BP 137/83
[2018-09-18] MEDS ORDERED: INSULIN GLARGINE 100 UNITS/ML, PEN SQ-INSULIN SCH (15:00)
[2018-09-18] MEDS: ENOXAPARIN 40 MG/0.4 ML SQ SCH (16:36)
[2018-09-18 20:08] VITALS: BP 117/77
[2018-09-18] MEDS: ATORVASTATIN 80 MG TABLET PO SCH (20:21)
[2018-09-18] MEDS: OXYBUTYNIN CHLORIDE 5 MG TABLET PO SCH (20:21)
[2018-09-19] MEDS: VANCOMYCIN 50 MG/ML ORAL SUSP PO SCH ×4 (00:05→18:00)
[2018-09-19 01:01] VITALS: BP 123/73
[2018-09-19] MEDS: MEROPENEM 1 GM in SODIUM CHLORIDE 0.9% 100 ML IV SCH ×3 (04:09→20:49)
[2018-09-19] MEDS: ASPIRIN 81 MG TABLET EC PO SCH (05:50)
[2018-09-19 07:49] VITALS: BP 130/81
[2018-09-19] MEDS: NEUTRA PHOS K 250 MG TABLET PO SCH ×3 (08:06→20:01)
[2018-09-19] MEDS: GABAPENTIN 300 MG CAPSULE PO SCH ×3 (08:06→20:49)
[2018-09-19] MEDS: DIVALPROEX 125 MG TABLET.DR PO SCH ×2 (08:06→20:50)
[2018-09-19] MEDS: POTASSIUM CHLORIDE 20 MEQ TAB.ER.PRT PO SCH (08:06)
[2018-09-19] MEDS: INSULIN LISPRO 100 UNITS/ML, PEN SQ-INSULIN SCH ×4 (08:06→21:00)
[2018-09-19] MEDS: CITALOPRAM 10 MG TABLET PO SCH (08:07)
[2018-09-19] MEDS: CARVEDILOL 6.25 MG TABLET PO SCH ×2 (08:07→20:49)
[2018-09-19] MEDS: LORazepam 0.5MG TABLET PO SCH (08:07)
[2018-09-19] MEDS ORDERED: MECLIZINE 12.5 MG TABLET PO PRN (10:30)
[2018-09-19 14:17] VITALS: BP 112/78
[2018-09-19] MEDS ORDERED: INSULIN GLARGINE 100 UNITS/ML, PEN SQ-INSULIN SCH (15:00)
[2018-09-19] MEDS ORDERED: INSULIN GLARGINE 100 UNITS/ML, PEN SQ-INSULIN ONE (16:30)
[2018-09-19] MEDS ORDERED: INSULIN LISPRO 100 UNITS/ML, PEN SQ-INSULIN ONE (16:30)
[2018-09-19] MEDS: ENOXAPARIN 40 MG/0.4 ML SQ SCH (16:34)
[2018-09-19 17:13] LABS: ALANINE AMINOTRANSFERASE 66 U/L (12-78); ALBUMIN 2.3 g/dL (3.4-5.0); ANION GAP 5 mmol/L (5-15); CHLORIDE 109 mmol/L (98-107); CREATININE 1.13 mg/dL (0.55-1.02)
[2018-09-19 17:14] LABS: ALKALINE PHOSPHATASE 134 U/L (45-117); BILIRUBIN,TOTAL 0.3 mg/dL (0.2-1.0); TOTAL PROTEIN 5.9 g/dL (6.4-8.2)
[2018-09-19 19:40] VITALS: BP 118/81
[2018-09-19] MEDS: OXYBUTYNIN CHLORIDE 5 MG TABLET PO SCH (20:50)
[2018-09-19] MEDS: ATORVASTATIN 80 MG TABLET PO SCH (20:50)
[2018-09-19] MEDS ORDERED: SODIUM POLYSTYRENE SULFONATE ORAL SUSP PO ONE (22:30)
[2018-09-20] MEDS: VANCOMYCIN 50 MG/ML ORAL SUSP PO SCH ×4 (00:26→16:42)
[2018-09-20 01:02] VITALS: BP 122/83
[2018-09-20] MEDS ORDERED: INSULIN LISPRO 100 UNITS/ML, PEN SQ-INSULIN ONE (02:00)
[2018-09-20] MEDS ORDERED: INSULIN GLARGINE 100 UNITS/ML, PEN SQ-INSULIN ONE (02:00)
[2018-09-20] MEDS: MEROPENEM 1 GM in SODIUM CHLORIDE 0.9% 100 ML IV SCH ×3 (04:51→19:58)
[2018-09-20] MEDS: ASPIRIN 81 MG TABLET EC PO SCH (05:49)
[2018-09-20 05:51] LABS: ALBUMIN 2.2 g/dL (3.4-5.0); ANION GAP 6 mmol/L (5-15); CHLORIDE 110 mmol/L (98-107)
[2018-09-20 05:56] LABS: ALANINE AMINOTRANSFERASE 64 U/L (12-78); ALKALINE PHOSPHATASE 122 U/L (45-117); BILIRUBIN,TOTAL 0.5 mg/dL (0.2-1.0); CREATININE 1.09 mg/dL (0.55-1.02); TOTAL PROTEIN 5.8 g/dL (6.4-8.2)
[2018-09-20 06:03] LABS: MEAN CORPUSCULAR HEMOGLOBIN 29.1 pg (27.0-34.8); MEAN CORPUSCULAR HGB CONC 32.2 g/dL (32.4-35.8); MEAN CORPUSCULAR VOLUME 90.5 fL (80-100); PLATELET COUNT 292 x10^3/uL (130-400); RED BLOOD COUNT 2.87 x10^6/uL (3.82-5.3); RED CELL DISTRIBUTION WIDTH 18.1 % (9.6-15.2)
[2018-09-20 06:42] LABS: BASOPHILS # (AUTO) 0.03 x10^3/uL (0-0.1); BASOPHILS % (AUTO) 0 % (0-1); EOSINOPHILS % (AUTO) 3 % (1-7); LYMPHOCYTES # (AUTO) 2.76 x10^3/uL (1-3.4); LYMPHOCYTES % (AUTO) 34 % (22-44); MD SCAN; MONOCYTES # (AUTO) 0.68 x10^3/uL (0.2-0.8); MONOCYTES % (AUTO) 8 % (2-9); NEUTROPHILS # (AUTO) 4.52 x10^3/uL (1.8-6.8); NEUTROPHILS % (AUTO) 55 % (42-75)
[2018-09-20] MEDS: INSULIN GLARGINE 100 UNITS/ML, PEN SQ-INSULIN SCH ×2 (08:14→20:17)
[2018-09-20] MEDS: GABAPENTIN 300 MG CAPSULE PO SCH ×4 (08:15→21:45)
[2018-09-20] MEDS: INSULIN LISPRO 100 UNITS/ML, PEN SQ-INSULIN SCH ×4 (08:15→20:18)
[2018-09-20] MEDS: LORazepam 0.5MG TABLET PO SCH (08:15)
[2018-09-20] MEDS: CARVEDILOL 6.25 MG TABLET PO SCH ×2 (08:15→21:46)
[2018-09-20] MEDS: DIVALPROEX 125 MG TABLET.DR PO SCH ×2 (08:15→21:46)
[2018-09-20] MEDS: CITALOPRAM 10 MG TABLET PO SCH (08:16)
[2018-09-20] MEDS ORDERED: TRAZODONE 50MG TABLET PO PRN (10:30)
[2018-09-20 14:40] VITALS: BP 117/81
[2018-09-20] MEDS: MECLIZINE 12.5 MG TABLET PO SCH ×2 (16:42→21:46)
[2018-09-20] MEDS: ENOXAPARIN 40 MG/0.4 ML SQ SCH (16:42)
[2018-09-20 18:43] VITALS: BP 115/75
[2018-09-20] MEDS ORDERED: INSULIN GLARGINE 100 UNITS/ML, PEN SQ-INSULIN SCH (21:00)
[2018-09-20] MEDS: OXYBUTYNIN CHLORIDE 5 MG TABLET PO SCH (21:46)
[2018-09-20] MEDS: ATORVASTATIN 80 MG TABLET PO SCH (21:46)
[2018-09-21] MEDS: VANCOMYCIN 50 MG/ML ORAL SUSP PO SCH ×4 (00:42→21:46)
[2018-09-21 01:32] VITALS: BP 135/83
[2018-09-21] MEDS: MEROPENEM 1 GM in SODIUM CHLORIDE 0.9% 100 ML IV SCH ×3 (03:44→19:54)
[2018-09-21 04:42] LABS: MEAN CORPUSCULAR HGB CONC 31.8 g/dL (32.4-35.8); MEAN CORPUSCULAR VOLUME 91.4 fL (80-100); MEAN PLATELET VOLUME 10.4 fL (7.4-10.4); PLATELET COUNT 329 x10^3/uL (130-400); RED BLOOD COUNT 2.93 x10^6/uL (3.82-5.3); RED CELL DISTRIBUTION WIDTH 20.8 % (9.6-15.2)
[2018-09-21 04:49] LABS: ALANINE AMINOTRANSFERASE 51 U/L (12-78); ALBUMIN 2.2 g/dL (3.4-5.0); ANION GAP 5 mmol/L (5-15); CALCIUM 8.1 mg/dL (8.5-10.1); CHLORIDE 112 mmol/L (98-107)
[2018-09-21 04:51] LABS: ALKALINE PHOSPHATASE 121 U/L (45-117); BILIRUBIN,TOTAL 0.4 mg/dL (0.2-1.0); CREATININE 1.27 mg/dL (0.55-1.02); TOTAL PROTEIN 5.9 g/dL (6.4-8.2)
[2018-09-21] MEDS: GABAPENTIN 300 MG CAPSULE PO SCH ×4 (05:15→21:47)
[2018-09-21] MEDS: ASPIRIN 81 MG TABLET EC PO SCH (05:15)
[2018-09-21 05:53] LABS: BASOPHILS # (AUTO) 0.03 x10^3/uL (0-0.1); BASOPHILS % (AUTO) 0 % (0-1); EOSINOPHILS # (AUTO) 0.17 x10^3/uL (0-0.4); EOSINOPHILS % (AUTO) 3 % (1-7); LYMPHOCYTES # (AUTO) 2.27 x10^3/uL (1-3.4); LYMPHOCYTES % (AUTO) 34 % (22-44); MD SCAN; MONOCYTES # (AUTO) 0.55 x10^3/uL (0.2-0.8); MONOCYTES % (AUTO) 8 % (2-9); NEUTROPHILS # (AUTO) 3.67 x10^3/uL (1.8-6.8); NEUTROPHILS % (AUTO) 55 % (42-75)
[2018-09-21 07:57] VITALS: BP 136/86
[2018-09-21] MEDS: INSULIN LISPRO 100 UNITS/ML, PEN SQ-INSULIN SCH ×4 (08:24→21:48)
[2018-09-21] MEDS ORDERED: INSULIN GLARGINE 100 UNITS/ML, PEN SQ-INSULIN SCH (09:00)
[2018-09-21] MEDS: MECLIZINE 12.5 MG TABLET PO SCH ×3 (09:43→21:47)
[2018-09-21] MEDS: LORazepam 0.5MG TABLET PO SCH (09:44)
[2018-09-21] MEDS: CITALOPRAM 10 MG TABLET PO SCH (09:45)
[2018-09-21] MEDS: CARVEDILOL 6.25 MG TABLET PO SCH ×2 (09:45→21:47)
[2018-09-21] MEDS: DIVALPROEX 125 MG TABLET.DR PO SCH ×2 (09:46→21:47)
[2018-09-21] MEDS: SODIUM CHLORIDE 0.9% 1,000 ML IV SCH (10:08)
[2018-09-21 14:20] VITALS: BP 113/77
[2018-09-21] MEDS: ENOXAPARIN 40 MG/0.4 ML SQ SCH (15:41)
[2018-09-21] MEDS ORDERED: INSULIN LISPRO 100 UNITS/ML, PEN SQ-INSULIN ONE (17:30)
[2018-09-21 17:50] LABS: ANION GAP 5 mmol/L (5-15); CALCIUM 8.1 mg/dL (8.5-10.1); CHLORIDE 114 mmol/L (98-107)
[2018-09-21 20:21] VITALS: BP 113/76
[2018-09-21] MEDS: OXYBUTYNIN CHLORIDE 5 MG TABLET PO SCH (21:47)
[2018-09-21] MEDS: ATORVASTATIN 80 MG TABLET PO SCH (21:47)
[2018-09-21] MEDS: INSULIN GLARGINE 100 UNITS/ML, PEN SQ-INSULIN SCH (22:26)
[2018-09-22 01:26] VITALS: BP 106/73
[2018-09-22] MEDS: SODIUM CHLORIDE 0.9% 1,000 ML IV SCH ×2 (01:54→18:14)
[2018-09-22] MEDS: VANCOMYCIN 50 MG/ML ORAL SUSP PO SCH ×4 (03:49→22:17)
[2018-09-22] MEDS: MEROPENEM 1 GM in SODIUM CHLORIDE 0.9% 100 ML IV SCH ×3 (03:49→20:23)
[2018-09-22 05:03] LABS: ALANINE AMINOTRANSFERASE 53 U/L (12-78); ALBUMIN 2.3 g/dL (3.4-5.0); ANION GAP 5 mmol/L (5-15); CALCIUM 8.3 mg/dL (8.5-10.1); CHLORIDE 116 mmol/L (98-107); CREATININE 1.08 mg/dL (0.55-1.02)
[2018-09-22 05:05] LABS: ALKALINE PHOSPHATASE 127 U/L (45-117); BILIRUBIN,TOTAL 0.1 mg/dL (0.2-1.0); TOTAL PROTEIN 6.2 g/dL (6.4-8.2)
[2018-09-22] MEDS: GABAPENTIN 300 MG CAPSULE PO SCH ×4 (05:32→21:16)
[2018-09-22] MEDS: ASPIRIN 81 MG TABLET EC PO SCH (05:32)
[2018-09-22 05:55] LABS: MEAN CORPUSCULAR HEMOGLOBIN 27.6 pg (27.0-34.8); MEAN CORPUSCULAR VOLUME 92.5 fL (80-100); MEAN PLATELET VOLUME 10.3 fL (7.4-10.4); PLATELET COUNT 323 x10^3/uL (130-400); RED BLOOD COUNT 3.16 x10^6/uL (3.82-5.3); RED CELL DISTRIBUTION WIDTH 24.2 % (9.6-15.2)
[2018-09-22 06:04] LABS: MEAN CORPUSCULAR HGB CONC 29.8 g/dL (32.4-35.8)
[2018-09-22 06:05] LABS: MD YES
[2018-09-22 06:08] LABS: EOS#(MANUAL) 0.14 x10^3/uL (0.0-0.4); EOS% (MANUAL) 2 % (1-7); LYMPH#(MANUAL) 2.66 x10^3/uL (1-3.4); LYMPHS% (MANUAL) 38 % (22-44); MONOS#(MANUAL) 0.21 x10^3/uL (0.3-2.7); MONOS% (MANUAL) 3 % (2-9); SEG#(MANUAL) 3.99 x10^3/uL (1.8-6.8); SEGS% (MANUAL) 57 % (42-75)
[2018-09-22 06:09] LABS: ANISOCYTOSIS 1+; POLYCHROMASIA 1+
[2018-09-22 06:10] LABS: <PLATELET ESTIMATE> ADEQUATE; LARGE PLATELETS 1+
[2018-09-22 06:12] VITALS: BP 108/72
[2018-09-22] MEDS: INSULIN LISPRO 100 UNITS/ML, PEN SQ-INSULIN SCH ×4 (07:42→22:18)
[2018-09-22] MEDS ORDERED: INSULIN GLARGINE 100 UNITS/ML, PEN SQ-INSULIN ONE (09:00)
[2018-09-22] MEDS: INSULIN GLARGINE 100 UNITS/ML, PEN SQ-INSULIN SCH ×2 (09:01→22:19)
[2018-09-22 09:40] VITALS: BP 115/90
[2018-09-22] MEDS: MECLIZINE 12.5 MG TABLET PO SCH ×3 (09:40→21:15)
[2018-09-22] MEDS: DIVALPROEX 125 MG TABLET.DR PO SCH ×2 (09:41→21:16)
[2018-09-22] MEDS: CITALOPRAM 10 MG TABLET PO SCH (09:41)
[2018-09-22] MEDS: CARVEDILOL 6.25 MG TABLET PO SCH ×2 (09:41→21:16)
[2018-09-22 13:27] VITALS: BP 137/81
[2018-09-22] MEDS: ENOXAPARIN 40 MG/0.4 ML SQ SCH (15:08)
[2018-09-22] MEDS: SIMETHICONE 125 MG CHEW TAB PO PRN (18:13)
[2018-09-22 19:42] VITALS: BP 165/92
[2018-09-22] MEDS: LORazepam 0.5MG TABLET PO SCH (21:15)
[2018-09-22] MEDS: ATORVASTATIN 80 MG TABLET PO SCH (21:16)
[2018-09-22] MEDS: OXYBUTYNIN CHLORIDE 5 MG TABLET PO SCH (21:16)
[2018-09-23 01:40] VITALS: BP 102/65
[2018-09-23] MEDS: VANCOMYCIN 50 MG/ML ORAL SUSP PO SCH ×4 (04:17→21:53)
[2018-09-23] MEDS: MEROPENEM 1 GM in SODIUM CHLORIDE 0.9% 100 ML IV SCH ×3 (04:17→21:15)
[2018-09-23] MEDS: GABAPENTIN 300 MG CAPSULE PO SCH ×4 (06:14→21:08)
[2018-09-23] MEDS: ASPIRIN 81 MG TABLET EC PO SCH (06:14)
[2018-09-23 07:00] VITALS: BP 159/96
[2018-09-23 07:48] LABS: ALBUMIN 2.3 g/dL (3.4-5.0); ANION GAP 6 mmol/L (5-15); CALCIUM 8.3 mg/dL (8.5-10.1); CHLORIDE 114 mmol/L (98-107); MEAN CORPUSCULAR HEMOGLOBIN 28.5 pg (27.0-34.8); MEAN CORPUSCULAR HGB CONC 30.6 g/dL (32.4-35.8); MEAN CORPUSCULAR VOLUME 93.1 fL (80-100); PLATELET COUNT 352 x10^3/uL (130-400); RED BLOOD COUNT 3.09 x10^6/uL (3.82-5.3); RED CELL DISTRIBUTION WIDTH 23.4 % (9.6-15.2)
[2018-09-23] MEDS: SODIUM CHLORIDE 0.9% 1,000 ML IV SCH (07:50)
[2018-09-23 07:51] LABS: ALANINE AMINOTRANSFERASE 54 U/L (12-78); ALKALINE PHOSPHATASE 129 U/L (45-117); BILIRUBIN,TOTAL 0.3 mg/dL (0.2-1.0); CREATININE 1.02 mg/dL (0.55-1.02); TOTAL PROTEIN 5.9 g/dL (6.4-8.2)
[2018-09-23 08:17] LABS: MD YES
[2018-09-23 08:22] LABS: BASOS#(MANUAL) 0.06 x10^3/uL (0-0.1); BASOS% (MANUAL) 1 % (0-1); EOS#(MANUAL) 0.12 x10^3/uL (0.0-0.4); EOS% (MANUAL) 2 % (1-7); LYMPH#(MANUAL) 1.49 x10^3/uL (1-3.4); LYMPHS% (MANUAL) 24 % (22-44); MONOS#(MANUAL) 0.25 x10^3/uL (0.3-2.7); MONOS% (MANUAL) 4 % (2-9); SEG#(MANUAL) 4.28 x10^3/uL (1.8-6.8); SEGS% (MANUAL) 69 % (42-75)
[2018-09-23 08:26] LABS: <PLATELET ESTIMATE> ADEQUATE; <PLT MORPHOLOGY> NORMAL PLT MORPH; ANISOCYTOSIS 1+; POLYCHROMASIA 1+
[2018-09-23 08:27] LABS: LARGE PLATELETS 1+
[2018-09-23] MEDS: SIMETHICONE 125 MG CHEW TAB PO PRN ×2 (08:54→21:53)
[2018-09-23] MEDS: MECLIZINE 12.5 MG TABLET PO SCH ×3 (08:54→21:09)
[2018-09-23] MEDS: CITALOPRAM 10 MG TABLET PO SCH (08:54)
[2018-09-23] MEDS: DIVALPROEX 125 MG TABLET.DR PO SCH ×2 (08:54→21:09)
[2018-09-23] MEDS: LORazepam 0.5MG TABLET PO SCH (08:54)
[2018-09-23] MEDS: CARVEDILOL 6.25 MG TABLET PO SCH ×2 (08:54→21:08)
[2018-09-23] MEDS: INSULIN LISPRO 100 UNITS/ML, PEN SQ-INSULIN SCH ×4 (08:55→21:10)
[2018-09-23] MEDS: INSULIN GLARGINE 100 UNITS/ML, PEN SQ-INSULIN SCH ×2 (08:58→21:10)
[2018-09-23 13:31] VITALS: BP 122/68
[2018-09-23] MEDS: ENOXAPARIN 40 MG/0.4 ML SQ SCH (17:49)
[2018-09-23 19:09] VITALS: BP 146/87
[2018-09-23] MEDS: ATORVASTATIN 80 MG TABLET PO SCH (21:08)
[2018-09-23] MEDS: OXYBUTYNIN CHLORIDE 5 MG TABLET PO SCH (21:09)
[2018-09-24] MEDS: SODIUM CHLORIDE 0.9% 1,000 ML IV SCH (00:08)
[2018-09-24 00:16] VITALS: BP 124/84
[2018-09-24] MEDS: VANCOMYCIN 50 MG/ML ORAL SUSP PO SCH ×3 (04:21→17:24)
[2018-09-24] MEDS: MEROPENEM 1 GM in SODIUM CHLORIDE 0.9% 100 ML IV SCH ×2 (04:21→12:39)
[2018-09-24] MEDS: GABAPENTIN 300 MG CAPSULE PO SCH ×3 (06:00→17:24)
[2018-09-24] MEDS: ASPIRIN 81 MG TABLET EC PO SCH (06:00)
[2018-09-24 06:02] LABS: MEAN CORPUSCULAR HEMOGLOBIN 29.7 pg (27.0-34.8); MEAN CORPUSCULAR HGB CONC 31.8 g/dL (32.4-35.8); MEAN CORPUSCULAR VOLUME 93.3 fL (80-100); MEAN PLATELET VOLUME 10.8 fL (7.4-10.4); PLATELET COUNT 316 x10^3/uL (130-400); RED BLOOD COUNT 3.21 x10^6/uL (3.82-5.3); RED CELL DISTRIBUTION WIDTH 24.3 % (9.6-15.2)
[2018-09-24 06:07] LABS: ALBUMIN 2.3 g/dL (3.4-5.0); ANION GAP 7 mmol/L (5-15); CALCIUM 8.3 mg/dL (8.5-10.1); CHLORIDE 115 mmol/L (98-107)
[2018-09-24 06:14] LABS: ALANINE AMINOTRANSFERASE 53 U/L (12-78); ALKALINE PHOSPHATASE 128 U/L (45-117); BILIRUBIN,TOTAL 0.2 mg/dL (0.2-1.0); CREATININE 0.87 mg/dL (0.55-1.02); TOTAL PROTEIN 6.1 g/dL (6.4-8.2)
[2018-09-24 06:23] LABS: BASOPHILS # (AUTO) 0.05 x10^3/uL (0-0.1); BASOPHILS % (AUTO) 1 % (0-1); EOSINOPHILS # (AUTO) 0.27 x10^3/uL (0-0.4); EOSINOPHILS % (AUTO) 4 % (1-7); LYMPHOCYTES # (AUTO) 2.56 x10^3/uL (1-3.4); LYMPHOCYTES % (AUTO) 38 % (22-44); MD SCAN; MONOCYTES # (AUTO) 0.52 x10^3/uL (0.2-0.8); MONOCYTES % (AUTO) 8 % (2-9); NEUTROPHILS % (AUTO) 50 % (42-75)
[2018-09-24] MEDS: INSULIN LISPRO 100 UNITS/ML, PEN SQ-INSULIN SCH ×3 (07:00→17:24)
[2018-09-24 07:01] VITALS: BP 146/89
[2018-09-24] MEDS: DIVALPROEX 125 MG TABLET.DR PO SCH (10:28)
[2018-09-24] MEDS: CITALOPRAM 10 MG TABLET PO SCH (10:28)
[2018-09-24] MEDS: LORazepam 0.5MG TABLET PO SCH (10:28)
[2018-09-24] MEDS: MECLIZINE 12.5 MG TABLET PO SCH ×2 (10:28→17:24)
[2018-09-24] MEDS: CARVEDILOL 6.25 MG TABLET PO SCH (10:29)
[2018-09-24] MEDS: INSULIN GLARGINE 100 UNITS/ML, PEN SQ-INSULIN SCH (10:29)
[2018-09-24 13:25] VITALS: BP 122/84
[2018-09-24] MEDS ORDERED: Simethicone PO (14:36)
[2018-09-24] MEDS ORDERED: GABA300C10 PO (14:36)
[2018-09-24] MEDS ORDERED: MECL12.52 PO (14:36)
[2018-09-24] MEDS ORDERED: INSU100I13 SQ-INSULIN (14:36)
[2018-09-24] MEDS ORDERED: VANC1VIA3 PO (14:36)
[2018-09-24] MEDS: ENOXAPARIN 40 MG/0.4 ML SQ SCH (15:00)
== END 2018-09-24 19:05 | DRG 871 ==
LOC: ED 23:38 → EDIP 09-11 00:47 → CCU 09-11 07:20 → 3NE 09-11 16:35
PROVIDERS: ADMIT Internal Medicine; ATTEND Internal Medicine
PROC: 0T9B70Z Drainage of Bladder with Drainage Device, Via Natural or Artificial Opening (ICD-10-PCS; principal; 2018-09-11)
DX: A41.9 Sepsis, unspecified organism (principal); G92 Toxic encephalopathy; I21.4 Non-ST elevation (NSTEMI) myocardial infarction; J15.9 Unspecified bacterial pneumonia; N17.0 Acute kidney failure with tubular necrosis; R65.21 Severe sepsis with septic shock; A04.72 Enterocolitis due to Clostridium difficile, not specified as recurrent; E46 Unspecified protein-calorie malnutrition; E87.0 Hyperosmolality and hypernatremia; I50.42 Chronic combined systolic (congestive) and diastolic (congestive) heart failure; J44.0 Chronic obstructive pulmonary disease with (acute) lower respiratory infection; N12 Tubulo-interstitial nephritis, not specified as acute or chronic; Z68.41 Body mass index [BMI] 40.0-44.9, adult; I69.351 Hemiplegia and hemiparesis following cerebral infarction affecting right dominant side; B96.20 Unspecified Escherichia coli [E. coli] as the cause of diseases classified elsewhere; E11.65 Type 2 diabetes mellitus with hyperglycemia; D63.8 Anemia in other chronic diseases classified elsewhere; E66.01 Morbid (severe) obesity due to excess calories; E78.5 Hyperlipidemia, unspecified; E83.39 Other disorders of phosphorus metabolism; E86.0 Dehydration; E83.42 Hypomagnesemia; E87.5 Hyperkalemia; F14.90 Cocaine use, unspecified, uncomplicated; F91.9 Conduct disorder, unspecified; G47.00 Insomnia, unspecified; I11.0 Hypertensive heart disease with heart failure; I25.10 Atherosclerotic heart disease of native coronary artery without angina pectoris; K21.9 Gastro-esophageal reflux disease without esophagitis; K43.9 Ventral hernia without obstruction or gangrene; K57.90 Diverticulosis of intestine, part unspecified, without perforation or abscess without bleeding; K76.0 Fatty (change of) liver, not elsewhere classified; K82.8 Other specified diseases of gallbladder; M79.7 Fibromyalgia; N32.81 Overactive bladder; Z16.12 Extended spectrum beta lactamase (ESBL) resistance; Z66 Do not resuscitate; Z79.4 Long term (current) use of insulin; Z79.82 Long term (current) use of aspirin; Z87.891 Personal history of nicotine dependence; Z90.710 Acquired absence of both cervix and uterus; Z99.81 Dependence on supplemental oxygen; Z88.8 Allergy status to other drugs, medicaments and biological substances
CPT/HCPCS: 36415; 84145; 99291; J3370; 70450; 71045; 74176; 80048; 80053; 80164; 80202; 80307; 81001; 82607; 82728; 82947; 82962; 83036; 83540; 83550; 83605; 83735; 83880; 84100; 84484; 85025; 85610; 85730; 87040; 87077; 87081; 87086; 87184; 87186; 87324; 87493; 93005; 96365; 96372; 96375; G0378; J0696; J1650; J2185; J2405; J2543; J3486; J1815; J3475; J7030; J7040; J7050

== ENCOUNTER 2018-11-25 15:50 | Emergency (ER) | payer MEDICAID ==
[~2018-11-25] VITALS: Ht 157.5 cm; Wt 104.5 kg
[~2018-11-25 15:50] MED LIST changes: +AMLO5TAB4 PO; +CEFT1VIA13 IM; +CITA10TA8 PO; +DIVA125T2 PO; +HYDR-3343 PO; +INSU100I13 SQ; +INSU100I13 SQ-INSULIN; +LORA0.5T PO; +LOSA50TA14 PO; +MECL12.52 PO; +MELA1TAB35 PO; +METR500T PO; +OXYB5TAB7 PO; +Simethicone PO; +VANC1VIA3 PO
--- NOTE | 2018-11-25 16:01 | NUR ---
PATIENT DELORES BARRERA FROM [facility] FOR LOWER ABD PAIN WITH DIARRHEA AND "BUTT CRACK" PAIN. HX OF CVA WITH RT SIDED DEFICITS. ALSO REPORTS HX OF DM AND MRSA/ESBL. AWAITING MD ORDERS, CALL LIGHT WITHIN REACH. STEPHANIE. Addendum: 11/25/18 at 2039 by NATALIA Correction: [place] Rox.
--- NOTE | 2018-11-25 16:04 | NUR ---
ISOLATION PRECAUTIONS PUT IN PLACE AT THIS TIME.
[2018-11-25] MEDS ORDERED: SODIUM CHLORIDE FLUSH 10ML SYR IVF ONE (16:30)
[2018-11-25 16:32] LABS: BASOPHILS # (AUTO) 0.04 x10^3/uL (0-0.1); BASOPHILS % (AUTO) 0 % (0-1); EOSINOPHILS # (AUTO) 0.15 x10^3/uL (0-0.4); EOSINOPHILS % (AUTO) 2 % (1-7); LYMPHOCYTES # (AUTO) 2.64 x10^3/uL (1-3.4); LYMPHOCYTES % (AUTO) 27 % (22-44); MD NO; MEAN CORPUSCULAR HGB CONC 32.1 g/dL (32.4-35.8); MEAN CORPUSCULAR VOLUME 90.4 fL (80-100); MEAN PLATELET VOLUME 9.3 fL (7.4-10.4); MONOCYTES # (AUTO) 0.69 x10^3/uL (0.2-0.8); MONOCYTES % (AUTO) 7 % (2-9); NEUTROPHILS # (AUTO) 6.37 x10^3/uL (1.8-6.8); NEUTROPHILS % (AUTO) 64 % (42-75); PLATELET COUNT 276 x10^3/uL (130-400); RED BLOOD COUNT 3.85 x10^6/uL (3.82-5.3); RED CELL DISTRIBUTION WIDTH 16.2 % (9.6-15.2)
[2018-11-25 16:42] LABS: ALANINE AMINOTRANSFERASE 19 U/L (12-78); ALBUMIN 2.7 g/dL (3.4-5.0); ANION GAP 5 mmol/L (5-15); CALCIUM 8.6 mg/dL (8.5-10.1); CHLORIDE 116 mmol/L (98-107); CREATININE 0.98 mg/dL (0.55-1.02)
[2018-11-25 16:44] LABS: ALKALINE PHOSPHATASE 82 U/L (45-117); BILIRUBIN,TOTAL 0.5 mg/dL (0.2-1.0); TOTAL PROTEIN 6.8 g/dL (6.4-8.2)
--- NOTE | 2018-11-25 16:59 | NUR ---
PATIENT TO CT VIA GURNEY.
[2018-11-25] MEDS ORDERED: OMNIPAQUE 350 MG/ML, 100ML BOTTLE ONE (17:24)
--- NOTE | 2018-11-25 17:48 | NUR ---
PATIENT TO BEDSIDE COMMODE WITH 1 ASSIST, SMALL HARD BROWN STOOL, NO DIARRHEA, STOOL NOT SENT FOR C-DIFF PER ERP. PATIENT BACK TO BED, NADN.
--- NOTE | 2018-11-25 18:34 | NUR ---
PATIENT ASSISTED WITH BED BAH, AWAITING FURTHER ORDERS. PATIENT SITTING IN STEPHANIE US.
--- NOTE | 2018-11-25 19:08 | NUR ---
PATIENT ASSISTED TO BED BAH PER REQUEST. PATIENT SITTING IN GURNEY, WATCHING TV, A+OX4, RESP EVEN/UNLABORED, NADN.
[2018-11-25 20:10] VITALS: BP 132/78
--- NOTE | 2018-11-25 20:13 | NUR ---
PATIENT SITTING IN GURNEY, WATCHING TV. PATIENT PUT ON BED BAH, AWAITING [facility] FOR TRANSPORT.
--- NOTE | 2018-11-25 20:38 | NUR ---
Patient/Caregiver given discharge instructions and they have confirmed that they understand the instructions. Patient left via gurney with BRUCE to [facility], [place] paperwork given to [facility].
== END 2018-11-25 20:40 | disposition home or self-care (01) ==
LOC: ED 19:18
DX: K57.33 Diverticulitis of large intestine without perforation or abscess with bleeding (principal); I25.2 Old myocardial infarction; E11.9 Type 2 diabetes mellitus without complications; I11.0 Hypertensive heart disease with heart failure; I50.9 Heart failure, unspecified; J44.9 Chronic obstructive pulmonary disease, unspecified; I25.10 Atherosclerotic heart disease of native coronary artery without angina pectoris; Z86.73 Personal history of transient ischemic attack (TIA), and cerebral infarction without residual deficits
CPT/HCPCS: 36415; 74177; 80053; 83605; 85025; 99284; Q9967